=== PATIENT | female | born 1990 | race Caucasian/White ===

== ENCOUNTER → 2024-06-20 | Day surgery (SDC) | payer MEDICAID ==
[~2024-06-20] VITALS: Ht 154.9 cm; Wt 82.6 kg
[~2024-06-20] MED LIST: ACETAMINOPHEN 1000MG/100ML 100 ML IV ONE; BUPIVACAINE HCL/PF 0.5% (5MG/ML) 10ML ONE; CEFAZOLIN SODIUM 1000MG/VIAL ONE; DEXAMETHASONE 4MG/ML 1ML VIAL ONE; FENTANYL CITRATE/PF 50MCG/ML 2ML VIAL IV PRN; FENTANYL CITRATE/PF 50MCG/ML 2ML VIAL ONE; FERR325T6 PO; MIDAZOLAM HCL 2 MG/2 ML VIAL ONE; ONDANSETRON HCL 4MG/2ML INJ IV PRN; ONDANSETRON HCL 4MG/2ML INJ ONE; PROPOFOL 200MG/20ML VIAL IV ONE; ROCURONIUM BROMIDE 10MG/ML VIAL 5ML IV ONE; SKIN ADHESIVE 0.7 GM EA TOP ONE; SUGAMMADEX SODIUM 200MG/2ML VIAL IV ONE
[2024-06-20] MEDS: LACTATED RINGERS 1,000 ML IV SCH (08:18)
[2024-06-20 08:23] LABS: UCG SCREEN NEGATIVE
[2024-06-20] MEDS: HYDROMORPHONE HCL/PF 1MG/ML INJ IV PRN (12:46)
[2024-06-20 14:35] VITALS: BP 109/62; PULSE 71; RESP 14
[2024-06-20] MEDS: ACETAMINOPHEN WITH CODEINE 300/30MG TABLET PO NR (14:35)
== END | disposition home or self-care (01) ==
LOC: OR 07:15
PROVIDERS: ATTEND Surgery
DX: K80.10 Calculus of gallbladder with chronic cholecystitis without obstruction (principal); Z86.2 Personal history of diseases of the blood and blood-forming organs and certain disorders involving the immune mechanism; Z79.899 Other long term (current) drug therapy; Z98.890 Other specified postprocedural states
CPT/HCPCS: 47562; 81025; 88304; J3010; J0665; J0690; J1100; J2250; J2405; J2704; J3490; J1171; J7030; J0131